=== PATIENT | male | born 1995 ===

== ENCOUNTER 2020-06-03 16:29 | Emergency (ER) | payer OTHER, SELFPAY ==
[2020-06-03 16:54] VITALS: BP 129/70; PULSE 81; RESP 18; TEMP 37.2; O2SAT 97
[2020-06-03 17:05] VITALS: BMI 20.9
--- NOTE | 2020-06-03 17:42 | ED.GENADULT ---
HPI - General Adult General Chief complaint: Upper Respiratory Symptoms <Renzo Camarena NP - Last Filed: 06/03/20 20:22> Stated complaint: covid screening <Renzo Camarena NP - Last Filed: 06/03/20 20:22> Time Seen by Provider: 06/03/20 17:38 <Renzo Camarena NP - Last Filed: 06/03/20 20:22> Source: patient <Renzo Camarena NP - Last Filed: 06/03/20 20:22> Mode of arrival: ambulatory <Renzo Camarena NP - Last Filed: 06/03/20 20:22> Limitations: no limitations <Renzo Camarena NP - Last Filed: 06/03/20 20:22> History of Present Illness HPI narrative: Asymptomatic, here with kids who have URI symptoms. Patient himself has no symptoms and requesting COVID test. <Renzo Camarena NP - Last Filed: 06/03/20 20:22> Onset (ago): day(s) <Renzo Camarena NP - Last Filed: 06/03/20 20:22> Associated symptoms: denies other symptoms <Renzo Camarena NP - Last Filed: 06/03/20 20:22> Treatments prior to arrival: none <Renzo Camarena NP - Last Filed: 06/03/20 20:22> Related Data Allergies/adverse reactions: Allergies Allergy/AdvReac Type Severity Reaction Status Date / Time No Known Allergies Allergy Unverified 01/29/20 19:06 [No Known Allergies*] <Renzo Camarena NP - Last Filed: 06/03/20 20:22> Review of Systems Review of Systems: Constitutional: No Weight loss, No Fever, No Chills, No Night Sweats, No Fatigue, No Malaise ENT/Mouth: No Hearing loss, No Ear Pain, No Nasal Congestion, No Sinus Pain, No Hoarseness, No sore throat, No Rhinorrhea, No Swallowing Difficulty Eyes: No Eye Pain, No Swelling, No Redness, No Foreign Body, No Discharge, No Vision Changes Cardiovascular: No Chest Pain, No SOB, No Dyspnea on Exertion, No Orthopnea, No Edema, No Palpitations Respiratory: No Cough, No Sputum, No Wheezing, No Smoke Exposure, No Dyspnea Gastrointestinal: Negative Genitourinary: Negative Musculoskeletal: No joint pain, No Myalgias, No Joint Swelling Skin: No Skin Lesions, No rash Neuro: Negative Psych: Negative Heme/Lymph: Negative Endocrine: Negative <Renzo Camarena NP - Last Filed: 06/03/20 20:22> Yes all other systems are reviewed and are negative <Renzo Camarena NP - Last Filed: 06/03/20 20:22> PMFSH Past Medical History Medical History: Medical History (Updated 06/03/20 @ 18:39 by Renzo Camaerna NP) No pertinent past medical history <Renzo Camarena NP - Last Filed: 06/03/20 20:22> Social History Social History: Social History Advance Directives: No Advance Directives Information Provided: No <Renzo Camarena NP - Last Filed: 06/03/20 20:22> Physical Exam Vital Signs: Vital Signs: Last Vital Signs Temp 99 F 06/03/20 16:54 Pulse 81 06/03/20 16:54 Resp 18 06/03/20 16:54 BP 129/70 06/03/20 16:54 Pulse Ox 97 06/03/20 16:54 Body Mass Index 20.9 Reviewed <Renzo Camarena NP - Last Filed: 06/03/20 20:22> Vital Signs: Last Vital Signs Temp 99 F 06/03/20 16:54 Pulse 81 06/03/20 16:54 Resp 18 06/03/20 16:54 BP 129/70 06/03/20 16:54 Pulse Ox 97 06/03/20 16:54 Body Mass Index 20.9 <Winston Fenton MD - Last Filed: 06/09/20 15:19> Const: General: cooperative and healthy appearing; No acute distress or intoxicated appearing <Renzo Camarena NP - Last Filed: 06/03/20 20:22> Nutritional Appearance: average body habitus <Renzo Camarena NP - Last Filed: 06/03/20 20:22> Orientation/consciousness: patient oriented x3 <Renzo Camarena NP - Last Filed: 06/03/20 20:22> HENMT: Head: Yes normal to inspection <Renzo Camarena NP - Last Filed: 06/03/20 20:22> Ears: hearing grossly normal bilaterally <Renzo Camarena NP - Last Filed: 06/03/20 20:22> Eyes: General: appearance normal, both eyes and all related structures <Renzo Camarena NP - Last Filed: 06/03/20 20:22> Visual Shields: normal visual shields by confrontation <Renzo Camarena NP - Last Filed: 06/03/20 20:22> Chest: Chest palpation & inspection: normal inspection of the chest <Renzo Camarena NP - Last Filed: 06/03/20 20:22> Resp: Effort & Inspection: normal respiratory effort <Renzo Camarena NP - Last Filed: 06/03/20 20:22> Skin: General skin exam: no rashes or lesions noted <Renzo Camarena NP - Last Filed: 06/03/20 20:22> Neuro: General: patient oriented x3 <Renzo Camarena NP - Last Filed: 06/03/20 20:22> Extrem: General: Yes normal to inspection <Renzo Camarena NP - Last Filed: 06/03/20 20:22> Course Course Course Narrative: Requesting. Does not want to wait request call back with results. <Renzo Camarena NP - Last Filed: 06/03/20 20:22> I have reviewed the chart <Winston Fenton MD - Last Filed: 06/09/20 15:19> Reevaluation(s) Reevaluation #1: Called at this time with results negative will go to patient for to print out the results for job. <Renzo Camarena NP - Last Filed: 06/03/20 20:22> Medical Decision Making Lab Data Labs: Lab Results 06/03/20 Range/Units 17:52 Coronavirus (PCR) NEGATIVE (Negative) Influenza Type A (PCR) NEGATIVE (Negative) Influenza Type B (PCR) NEGATIVE (Negative) RSV RNA Qual (PCR) NEGATIVE (Negative) <Renzo Camarena NP - Last Filed: 06/03/20 20:22> Lab Results 06/03/20 Range/Units 17:52 Coronavirus (PCR) NEGATIVE (Negative) Influenza Type A (PCR) NEGATIVE (Negative) Influenza Type B (PCR) NEGATIVE (Negative) RSV RNA Qual (PCR) NEGATIVE (Negative) <Wisnton Fenton MD - Last Filed: 06/09/20 15:19> Discharge Plan Discharge Clinical Impression: COVID-19 ruled out by laboratory testing <Renzo Camarena NP - Last Filed: 06/03/20 20:22> Patient Disposition: Home, Self-Care <Renzo Camarena NP - Last Filed: 06/03/20 20:22> Instructions: Normal Exam (ED) <Renzo Camarena NP - Last Filed: 06/03/20 20:22> Additional Instructions: We will call you with the COVID-19 test results and have home Return if any concerns or worsening symptoms Follow CDC/state guidelines Thank you <Renzo Camarena NP - Last Filed: 06/03/20 20:22> Referrals: Physician,None [Primary Care Provider] - 1 week <Renzo Camarena NP - Last Filed: 06/03/20 20:22> Discharge Date/Time: 06/03/20 18:56 <Renzo Camarena NP - Last Filed: 06/03/20 20:22>
--- NOTE | 2020-06-03 17:57 | PC.NURSE ---
covid swab performed
[2020-06-03 18:49] LABS: Influenza A PCR NEGATIVE (Negative); Influenza B PCR NEGATIVE (Negative); Resp Syncy Virus RNA Qual PCR NEGATIVE (Negative); SARS COV2 PCR INHOUSE NEGATIVE (Negative)
== END 2020-06-03 18:56 | disposition home or self-care (01) ==
PROVIDERS: Nurse Practitioner Primary Care; Emergency Provider Emergency Medicine
DX: R05 Cough (principal); Z20.822 Contact with and (suspected) exposure to COVID-19
CPT/HCPCS: 0241U; 36415; 99283

== ENCOUNTER 2020-10-16 23:41 | Emergency (ER) | payer OTHER, SELFPAY ==
[2020-10-17 01:34] VITALS: BP 147/82; PULSE 56; RESP 16; TEMP 36.7; O2SAT 100; BMI 21.1
== END 2020-10-17 04:15 | disposition left against medical advice (07) ==
PROVIDERS: Emergency Provider Emergency Medicine
DX: M54.6 Pain in thoracic spine (principal)
CPT/HCPCS: 99281; 99282

== ENCOUNTER 2020-10-17 11:56 | Emergency (ER) | payer OTHER, SELFPAY ==
[2020-10-17 12:18] VITALS: BP 134/78; PULSE 53; RESP 16; TEMP 36.6; O2SAT 99; BMI 21.1
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
[2020-10-17] MEDS: Ketorolac Tromethamine 30 MG/ML VIAL IM (13:27)
== END 2020-10-17 13:30 | disposition home or self-care (01) ==
PROVIDERS: Emergency Provider Emergency Medicine Emergency Medical Services
DX: M54.6 Pain in thoracic spine (principal)
CPT/HCPCS: 96372; 99283; 99284; J1885

== ENCOUNTER 2020-11-20 21:41 | Emergency (ER) | payer OTHER, SELFPAY ==
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
--- NOTE | ~2020-11-20 | US_ITS ---
EXAMINATION: US VENOUS ULTRASOUND WITH DOPPLER LOWER EXTREMITY, RIGHT CLINICAL INFORMATION: Right medial calf pain for one day. COMPARISON: None TECHNIQUE: Ultrasound of the deep veins is performed from the hip to the calf with compression sonography and color and pulse Doppler assessment. Spectral analysis with color-flow imaging is performed. FINDINGS: There is normal venous compression and respiratory variation and augmented flow. The visualized common femoral vein, superficial femoral vein, profunda femoral vein, popliteal vein, and the trifurcation region shows no evidence of deep venous thrombosis. There is no significant popliteal fossa cyst. There are morphologically normal-appearing lymph nodes in the right groin with fatty king. If the patient's symptoms persist, followup ultrasound in 5 days 7 days might be of value to exclude proximal propagation from a non-visualized calf vein. US/US venous duplex LE RT IMPRESSION: No DVT demonstrated in the right lower extremity.
--- NOTE | ~2020-11-20 | XR_ITS ---
EXAMINATION: XR HAND, LEFT CLINICAL INFORMATION: Pain and swelling COMPARISON: None TECHNIQUE: PA, lateral, and oblique views of the left hand. FINDINGS: There is no fracture or dislocation. Alignment is anatomic. Joint spaces are maintained. The soft tissues are unremarkable. XR/XR hand LT min 3V IMPRESSION: Normal left hand.
[2020-11-20 21:45] VITALS: BP 128/88; PULSE 62; RESP 16; TEMP 36.2; O2SAT 99; BMI 21.1
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
== END 2020-11-21 00:38 | disposition home or self-care (01) ==
PROVIDERS: Emergency Provider Internal Medicine
DX: M79.642 Pain in left hand (principal); M79.661 Pain in right lower leg
CPT/HCPCS: 73130; 73590; 93971; 99284

== ENCOUNTER → 2020-11-26 13:43 | Outpatient (BNVA) | payer OTHER, SELFPAY | PROVIDERS: Visit Provider Physician Assistant | DX: M25.532 Pain in left wrist (principal) | CPT/HCPCS: 99202 ==

== ENCOUNTER 2020-12-10 09:02 | Outpatient (REF) | payer OTHER, SELFPAY ==
--- NOTE | ~2020-12-10 | MR_ITS ---
EXAMINATION: MRI OF THE LEFT WRIST WITHOUT CONTRAST CLINICAL INFORMATION: Pain in left wrist COMPARISON: X-ray of the left hand November 2020 TECHNIQUE: MRI left wrist was performed without contrast on a high-field MRI scanner. FINDINGS: Subcutaneous soft tissues: Normal. Muscles and tendons: Normal. Triangular fibrocartilage complex: Normal. Intraosseous ligaments: Normal. Bone and articular cartilage: Normal. MR/MR wrist LT wo con IMPRESSION: Normal MRI of the left wrist.
== END 2020-12-10 09:03 | disposition home or self-care (01) ==
LOC: HO.MRI 09:02
PROVIDERS: Visit Provider Physician Assistant
DX: M25.532 Pain in left wrist (principal)
CPT/HCPCS: 73221

== ENCOUNTER 2021-05-22 00:27 | Emergency (ER) | payer OTHER, SELFPAY ==
[2021-05-22 00:30] VITALS: BP 154/89; PULSE 70; RESP 16; TEMP 36.7; O2SAT 100; BMI 46.5
[2021-05-22 01:52] VITALS: BP 143/101; PULSE 75; RESP 18; TEMP 36.9; O2SAT 100
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
[2021-05-22 03:03] LABS: Basophils Percent Auto 0.5 % (0-2); Eosinophils Absolute Auto 0.2 X10*3/uL (0.0-0.4); Eosinophils Percent Auto 2.9 % (0-4); Hematocrit 43.3 % (42.0-52.0); Hemoglobin 14.4 g/dl (14.0-18.0); Imm Gran Abs Auto 0.01 X10*3/uL (0.00-0.03); Imm Gran Pct Auto 0.1 % (0.0-0.4); Lymphocytes Absolute Auto 2.6 X10*3/uL (1.2-4.9); Lymphocytes Percent Auto 31.5 % (20-40); MANUAL DIFF FLAG NO; Mean Corpuscular HGB Conc 33.3 g/dl (31.0-36.0); Mean Corpuscular Hemoglobin 29.9 pg (27.0-33.0); Mean Corpuscular Volume 89.8 fL (80.0-98.0); Mean Platelet Volume 10.1 fL (9.4-12.4); Monocytes Absolute Auto 0.8 X10*3/uL (0.1-1.2); Monocytes Percent Auto 9.9 % (2-11); Neutrophils Absolute Auto 4.6 x10*3/uL (2.0-8.3); Neutrophils Percent Auto 55.1 % (45-73); Platelet Count 344 X10*3/uL (160-400); Red Blood Count 4.82 X10*6/uL (4.60-5.80); Red Cell Distribution Width 11.9 % (11.0-16.0); White Blood Count 8.4 X10*3/uL (4.8-10.8)
[2021-05-22 03:28] LABS: Alanine Aminotransferase 14 U/L (0-40); Albumin Level 4.1 g/dL (3.5-5.0); Alkaline Phosphatase 55 U/L (39-117); Anion Gap 11 (12-20); Aspartate Amino Transferase 15 U/L (5-37); Bilirubin Total < 0.2 mg/dL (0.0-1.0); Blood Urea Nitrogen 13 mg/dL (9-16); Carbon Dioxide 27 mmol/L (22-29); Chloride 106 mmol/L (96-108); Creatinine Clr Calc Pharmacy 206.6; Estimated Glomerular Filt Rate > 60; Glucose Random 94 mg/dL (60-115); Potassium 4.3 mmol/L (3.3-5.1); Sodium 140 mmol/L (135-145); Total Protein 7.7 g/dL (6.5-8.0)
[2021-05-22] MEDS: Lidocaine 4 % Patch ADH..PATCH 1 PATCH TRANSDERMA (04:08)
[2021-05-22] MEDS: Acetaminophen 325 MG TABLET 975 MG PO (04:10)
[2021-05-22] MEDS: Ketorolac Tromethamine 30 MG/ML VIAL 15 MG IM (04:10)
== END 2021-05-22 04:18 | disposition home or self-care (01) ==
PROVIDERS: Emergency Provider Student in an Organized Health Care Education/Training Program; PCP Internal Medicine
DX: G25.9 Extrapyramidal and movement disorder, unspecified (principal); M54.9 Dorsalgia, unspecified
CPT/HCPCS: 36415; 80053; 85025; 96372; 99284; J1885

== ENCOUNTER 2021-05-31 06:34 | Emergency (ER) | payer OTHER, SELFPAY ==
--- NOTE | ~2021-05-31 | CT_ITS ---
EXAMINATION: CT ABDOMEN AND PELVIS WITHOUT CONTRAST CLINICAL INFORMATION: Right-sided flank pain COMPARISON: None TECHNIQUE: Multidetector volumetric imaging was performed from the superior aspect of the liver through the pubic symphysis. Sagittal and coronal reformatted images were obtained on the technologist's workstation. This CT examination was performed using dose optimization techniques as appropriate, variously including the following: *Automated exposure control *Adjustment of mA and/or kV according to patient size (this includes techniques or standardized protocols for targeted exams where dose is matched to indication/reason for exam; i.e. extremities or head) *Use of iterative reconstruction technique DLP: 395 mGy-cm FINDINGS: LUNG BASES: The visualized lung bases are unremarkable. LIVER, GALLBLADDER, AND BILIARY TREE: The liver is normal in size, shape, and attenuation. No focal hepatic lesion or biliary ductal dilatation is present. The gallbladder is unremarkable with no evidence of radiopaque gallstones, gallbladder wall thickening, or obvious pericholecystic inflammatory changes. PANCREAS: Unremarkable. SPLEEN: Unremarkable. ADRENAL GLANDS: Unremarkable. KIDNEYS AND URETERS: The kidneys are normal in size, shape, and attenuation. No hydronephrosis, hydroureter, or calculi seen. No perinephric stranding. BLADDER: There is moderate stool seen throughout the colon GASTROINTESTINAL TRACT: There is moderate stool seen throughout the colon without distention. Appendix is in the right pelvis and is normal caliber. The small bowel loops are normal caliber. The stomach is nondistended and appears unremarkable. ABDOMINAL WALL: No significant hernia is appreciated. LYMPH NODES: Normal. VASCULAR: Unremarkable. PELVIC VISCERA: Unremarkable. OSSEOUS STRUCTURES: There is mild levoscoliosis of upper lumbar spine, likely positional. Otherwise unremarkable visualized osseous structures. CT/CT abdomen pelvis wo con IMPRESSION: No acute intra-abdominal process seen. Moderate constipation. Normal appendix. No radiopaque urolith or hydroureteronephrosis. Fleischner guidelines were followed.
[2021-05-31 07:12] VITALS: BP 122/82; PULSE 73; RESP 18; TEMP 36.3; O2SAT 100; BMI 21.1
[2021-05-31] MEDS: Ondansetron ODT 4 MG TAB.RAPDIS TRANSLINGU (07:17)
--- NOTE | 2021-05-31 09:17 | PC.NURSE ---
pt left ed, went home and called an ambulance to come back and get in faster
== END 2021-05-31 09:15 | disposition left against medical advice (07) ==
PROVIDERS: Emergency Provider Emergency Medicine
DX: K59.00 Constipation, unspecified (principal); R10.9 Unspecified abdominal pain
CPT/HCPCS: 74176; 99282; 99284

== ENCOUNTER 2021-05-31 09:03 | Emergency (ER) | payer OTHER, SELFPAY ==
[2021-05-31 09:10] VITALS: BP 129/75; PULSE 60; O2SAT 100
== END 2021-05-31 11:32 | disposition left against medical advice (07) ==
PROVIDERS: Emergency Provider Emergency Medicine
DX: R10.9 Unspecified abdominal pain (principal)

== ENCOUNTER 2021-09-11 22:20 | Emergency (ER) | payer OTHER, SELFPAY ==
--- NOTE | ~2021-09-11 | XR_ITS ---
EXAMINATION: XR foot LT min 3V, XR ankle LT min 3V CLINICAL INFORMATION: Reason for Exam NAZIA FELL ON FOOT COMPARISON: None. TECHNIQUE: 3 view series left foot; 2 view series left ankle FINDINGS: Left foot: A mild hallux valgus deformity is noted. No Lisfranc malalignment. No fractures visualized. No embedded radiopaque foreign bodies noted. Left ankle: Intact talar dome. No fractures noted. No arthropathic changes visualized. No joint effusion identified. XR/XR foot LT min 3V IMPRESSION: No acute abnormalities of the left foot and left ankle.
--- NOTE | ~2021-09-11 | XR_ITS ---
EXAMINATION: XR foot LT min 3V, XR ankle LT min 3V CLINICAL INFORMATION: Reason for Exam NAZIA FELL ON FOOT COMPARISON: None. TECHNIQUE: 3 view series left foot; 2 view series left ankle FINDINGS: Left foot: A mild hallux valgus deformity is noted. No Lisfranc malalignment. No fractures visualized. No embedded radiopaque foreign bodies noted. Left ankle: Intact talar dome. No fractures noted. No arthropathic changes visualized. No joint effusion identified. XR/XR ankle LT min 3V IMPRESSION: No acute abnormalities of the left foot and left ankle.
[2021-09-11 22:50] VITALS: BP 148/69; PULSE 69; RESP 16; TEMP 37; O2SAT 100; BMI 27.4
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
[2021-09-12] MEDS: Ketorolac Tromethamine 15 MG/ML VIAL 30 MG IM (00:38)
== END 2021-09-12 01:36 | disposition home or self-care (01) ==
PROVIDERS: Emergency Provider Emergency Medicine
DX: S92.352A Displaced fracture of fifth metatarsal bone, left foot, initial encounter for closed fracture (principal); M25.572 Pain in left ankle and joints of left foot; W20.8XXA Other cause of strike by thrown, projected or falling object, initial encounter; Y93.9 Activity, unspecified; Y92.009 Unspecified place in unspecified non-institutional (private) residence as the place of occurrence of the external cause; Y99.9 Unspecified external cause status
CPT/HCPCS: 73610; 73630; 96372; 99283; 99284; J1885

== ENCOUNTER → 2021-09-28 10:08 | Outpatient (BNVA) | payer OTHER, SELFPAY | PROVIDERS: Visit Provider Physician Assistant | DX: S90.32XA Contusion of left foot, initial encounter (principal) | CPT/HCPCS: 99212 ==

== ENCOUNTER 2021-12-24 23:16 | Emergency (ER) | payer OTHER, SELFPAY ==
[2021-12-24 23:19] VITALS: BP 133/74; PULSE 61; RESP 16; TEMP 36.6; O2SAT 100; BMI 22.4
--- NOTE | 2021-12-25 00:06 | ED.GENADULT ---
HPI - General Adult General Chief complaint: Back Pain/Injury Stated complaint: back pain Time Seen by Provider: 12/25/21 00:06 Source: patient Mode of arrival: ambulatory Limitations: no limitations History of Present Illness HPI narrative: Patient is a 26 year old male presenting to the emergency department today with back pain. Patient states that 6 days ago, he was ratcheting some straps down at work and is now having back pain. Patient denies any dizziness, lightheadedness, abdominal pain, nausea, vomiting, fever, chills, blurry vision, double vision, loss of vision, chest pain, difficulty breathing, shortness of breath, night sweats, pain with urination, increased urinary frequency, increased urinary urgency, blood in his urine or stool, syncope or a near syncopal episode, bowel incontinence, bladder incontinence, bowel retention, bladder retention, or any other complaints at this time. Onset (ago): day(s) (6) Location: back Radiation: non-radiation Severity: mild Severity scale (1-10): 2 Quality: dull Pain Consistency: constant Relieving factors: none Exacerbating factors: none Associated symptoms: denies other symptoms Treatments prior to arrival: none Related Data Previous Rx's Medication Instructions Recorded oxycodone-acetaminophen 5 mg-325 1 tab PO Q6H PRN pain #10 tabs 10/17/20 mg tablet (Percocet) acetaminophen 500 mg tablet 500 mg PO Q6H PRN pain or fever 11/21/20 (Tylenol Extra Strength) #20 tabs lidocaine 5 % topical patch 1 patch topical DAILY PRN pain #30 11/21/20 (Lidoderm) ea naproxen 500 mg tablet 500 mg PO BID PRN pain 10 days #20 11/21/20 tabs oxycodone 5 mg capsule 5 mg PO Q8H PRN pain #6 caps 09/12/21 cyclobenzaprine 5 mg tablet 5 mg PO TID PRN back pain 7 days 12/25/21 #21 tabs Allergies Allergy/AdvReac Type Severity Reaction Status Date / Time No Known Allergies Allergy Verified 09/11/21 22:54 [No Known Allergies*] Review of Systems Constitutional: Constitutional: Reports no additional constitutional complaints, Denies chills, Denies fever(s) and Denies night sweats Eyes: Eyes: Reports no additional eye complaints, Denies blurry vision, Denies change in vision, Denies diplopia, Denies eye discharge, Denies loss of vision and Denies eye pain ENT: Denies dizziness Cardiovascular: Cardiovascular: Reports no additional cardiovascular complaints, Denies chest pain, Denies lightheadedness, Denies Loss of Consciousness and Denies dyspnea Respiratory: Respiratory: Reports no additional respiratory complaints and Denies dyspnea Gastrointestinal: Gastrointestinal: Reports no additional gastrointestinal complaints, Denies abdominal pain, Denies melena, Denies hematochezia, Denies change in bowel habits and Denies change in stool character Genitourinary: Genitourinary: Reports no additional male genitourinary complaints, Denies hematuria, Denies oliguria, Denies difficulty urinating, Denies dysuria, Denies urinary frequency, Denies urinary hesitancy, Denies urinary incontinence and Denies urinary urgency Musculoskeletal: Musculoskeletal: Reports no additional musculoskeletal complaints, Reports back pain, Denies numbness and Denies tingling Neurologic: Denies dizziness, Denies loss of vision, Denies numbness and Denies tingling Psychiatric: Psychiatric: Reports no additional psychiatric complaints Endocrine: Endocrine: Reports no additional endocrine complaints Hematologic/Lymphatic: Hematologic/Lymphatic: Reports no additional hematologic/lymphatic complaints Allergic/Immunologic: Allergic/Immunologic: Reports no additional allergic/immunologic complaints [facility] Past Medical History Attestation statement: The following information was validated with the patient. Source: old records reviewed Medical History Back pain due to injury No pertinent past medical history Social History Social History Advance Directives: No Advance Directives Information Provided: Yes Current occupational status: employed Current occupation: [employer] Physical Exam ED Vital Signs: Vital Signs - 24 hr 12/24/21 23:19 Temperature 98 F Pulse Rate 61 Respiratory Rate 16 Blood Pressure 133/74 Pulse Oximetry 100 Oxygen Delivery Method Room Air BMI result Body Mass Index 22.4 Resp Auscultation: clear to auscultation bilaterally Cardio Rate: regular rate Rhythm: regular rhythm General: Yes no CVA tenderness Back/Spine/Pelvis Back: no CVA tenderness Cervical Spine: normal cervical lordosis and cervical ROM normal Thoracic/Lumbar Spine: thoracic and lumbar spine normal to inspection and thoraco-lumbar ROM normal Pelvis: no pain with anterior-posterior compression Medical Decision Making MDM Narrative Medical decision making narrative: Patient is a 26 year old male presenting to the emergency department today with back pain. Patient's physical exam was unremarkable. I explained my physical exam findings to the patient. I answered all questions asked by the patient. Patient received IM Toradol and PO Flexeril which he stated helped his symptoms significantly. I stressed the importance of the patient taking his medication as prescribed. I stressed the importance of the patient following up with his primary care provider. I stressed the importance of the patient returning to the emergency department immediately if his symptoms were to worsen or if he were to develop any dizziness, shortness of breath, difficulty breathing, chest pain, blurry vision, loss of vision, nausea, vomiting, abdominal pain, fever, chills, back pain, or any other complaints. Patient verbalized agreement and understanding with this treatment plan and discharge. Differential Diagnosis Differential Diagnosis: back pain Medical Records Medical records reviewed: Yes I reviewed the patient's medical records. Discharge Plan Discharge Clinical Impression: Back pain Patient Disposition: Home, Self-Care Instructions: Back Pain (ED) Additional Instructions: Follow up with your primary care provider. Return to the emergency department immediately if your symptoms worsen or if you develop any dizziness, shortness of breath, difficulty breathing, chest pain, blurry vision, loss of vision, nausea, vomiting, abdominal pain, fever, chills, back pain, or any other complaints. Prescriptions: New cyclobenzaprine 5 mg tablet 5 mg PO TID PRN (Reason: back pain) 7 Days Qty: 21 0RF Discontinued cyclobenzaprine 5 mg tablet 5 mg PO TID PRN (Reason: muscle spasm) Qty: 10 0RF ibuprofen 600 mg tablet 600 mg PO Q6H PRN (Reason: pain) Qty: 20 0RF cyclobenzaprine 5 mg tablet 5 mg PO Q8H PRN (Reason: pain (scale score 7-10)) 5 Days Qty: 14 0RF No Action oxycodone-acetaminophen [Percocet] 5-325 mg tablet 1 tab PO Q6H PRN (Reason: pain) Qty: 10 0RF Rx Instructions: Narcotic, no driving for 6 hours after taking this medication acetaminophen [Tylenol Extra Strength] 500 mg tablet 500 mg PO Q6H PRN (Reason: pain or fever) Qty: 20 0RF lidocaine [Lidoderm] 5 % adhesive patch,medicated 1 patch topical DAILY MDD remove after 12 hours PRN (Reason: pain) Qty: 30 0RF Rx Instructions: leave on most painful area for up to 12 hrs naproxen 500 mg tablet 500 mg PO BID PRN (Reason: pain) 10 Days Qty: 20 0RF oxycodone 5 mg capsule 5 mg PO Q8H PRN (Reason: pain) Qty: 6 0RF Rx Instructions: Patient can partially fill prescription upon request Referrals: Shade Ann MD [Primary Care Provider] - Stand Alone Forms: Work/School Release Print Language: Urdu
[2021-12-25] MEDS: Ketorolac Tromethamine 15 MG/ML VIAL IM (01:02)
[2021-12-25] MEDS: Cyclobenzaprine HCl 5 MG TABLET PO (01:03)
== END 2021-12-25 01:15 | disposition home or self-care (01) ==
PROVIDERS: Emergency Provider Emergency Medicine; PCP Internal Medicine
DX: M54.50 Low back pain, unspecified (principal); Z79.899 Other long term (current) drug therapy
CPT/HCPCS: 96372; 99283; 99284; J1885

== ENCOUNTER → 2022-05-09 14:24 | Outpatient (BNVA) | payer OTHER, SELFPAY | PROVIDERS: PCP Internal Medicine; Visit Provider Urology | DX: Z30.09 Encounter for other general counseling and advice on contraception (principal); F41.8 Other specified anxiety disorders | CPT/HCPCS: 99202 ==

== ENCOUNTER 2022-12-31 18:07 | Emergency (ER) | payer OTHER, SELFPAY ==
[2022-12-31 19:12] VITALS: BP 125/71; PULSE 57; RESP 18; TEMP 36.5; O2SAT 100; BMI 24.4
[2022-12-31 22:39] VITALS: BP 123/81; PULSE 59; RESP 15; TEMP 36.7; O2SAT 100
--- NOTE | 2022-12-31 23:37 | PC.NURSE ---
Assumed care of pt.
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
== END 2023-01-01 01:04 | disposition home or self-care (01) ==
PROVIDERS: Emergency Provider Emergency Medicine
DX: M54.50 Low back pain, unspecified (principal); M79.604 Pain in right leg; G25.81 Restless legs syndrome; R51.9 Headache, unspecified; Z79.899 Other long term (current) drug therapy
CPT/HCPCS: 99283; 99284

== ENCOUNTER 2023-03-11 13:28 | Emergency (ER) | payer SELFPAY ==
[2023-03-11 13:38] VITALS: BP 139/62; PULSE 58; RESP 18; TEMP 36.6; O2SAT 98; BMI 23.7
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
[2023-03-11] MEDS: Fluorescein Sodium STRIP 1 STRIP EYE-BOTH (16:30)
[2023-03-11] MEDS: Tetracaine HCl/PF 0.5% Oph Sol 4 ML DROPS 3 DROP EYE-BOTH (16:30)
== END 2023-03-11 17:02 | disposition home or self-care (01) ==
PROVIDERS: Emergency Provider Internal Medicine
DX: S05.02XA Injury of conjunctiva and corneal abrasion without foreign body, left eye, initial encounter (principal); X58.XXXA Exposure to other specified factors, initial encounter; Y93.9 Activity, unspecified; Y92.9 Unspecified place or not applicable; Y99.9 Unspecified external cause status; Z79.899 Other long term (current) drug therapy
CPT/HCPCS: 96372; 99282; 99284

== ENCOUNTER 2023-08-10 18:46 | Emergency (ER) | payer OTHER, SELFPAY ==
--- NOTE | ~2023-08-10 | XR_ITS ---
EXAMINATION: XR LUMBOSACRAL SPINE CLINICAL INFORMATION: Back pain COMPARISON: None available. TECHNIQUE: Three views of the lumbosacral spine. FINDINGS: The vertebral bodies and posterior elements are unremarkable aside from some mild straightening. The disc spaces are preserved and the vertebral alignment is normal. The paraspinal soft tissues are normal. XR/XR lumbar spine 2-3V IMPRESSION: Mild straightening of the lumbar spine. No acute finding.
[2023-08-10 19:37] VITALS: BP 152/83; PULSE 63; RESP 18; TEMP 36.7; O2SAT 99; BMI 25.2
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
[2023-08-10 20:32] LABS: MANUAL DIFF FLAG NO
[2023-08-10 20:34] LABS: Basophils Percent Auto 0.3 % (0-2); Eosinophils Absolute Auto 0.2 X10*3/uL (0.0-0.4); Eosinophils Percent Auto 1.9 % (0-4); Hematocrit 41.2 % (42.0-52.0); Imm Gran Abs Auto 0.02 X10*3/uL (0.00-0.03); Imm Gran Pct Auto 0.3 % (0.0-0.4); Lymphocytes Absolute Auto 2.6 X10*3/uL (1.2-4.9); Mean Corpuscular Hemoglobin 30.4 pg (27.0-33.0); Mean Corpuscular Volume 89.6 fL (80.0-98.0); Mean Platelet Volume 10.4 fL (9.4-12.4); Monocytes Absolute Auto 0.6 X10*3/uL (0.1-1.2); Neutrophils Absolute Auto 4.5 x10*3/uL (2.0-8.3); Neutrophils Percent Auto 56.5 % (45-73); Platelet Count 251 X10*3/uL (160-400); Red Cell Distribution Width 12.2 % (11.0-16.0); White Blood Count 7.9 X10*3/uL (4.8-10.8)
[2023-08-10 20:48] LABS: Alanine Aminotransferase 12 U/L (0-40); Alkaline Phosphatase 72 U/L (39-117); Anion Gap 10 (12-20); Aspartate Amino Transferase 14 U/L (5-37); Bilirubin Total 0.2 mg/dL (0.0-1.0); Blood Urea Nitrogen 13 mg/dL (9-16); Calcium 9.3 mg/dL (8.4-10.2); Carbon Dioxide 27 mmol/L (22-29); Chloride 107 mmol/L (96-108); Creatinine Clr Calc Pharmacy 128.3; Estimated Glomerular Filt Rate > 60; Glucose Random 97 mg/dL (60-115); Potassium 3.8 mmol/L (3.3-5.1); Sodium 140 mmol/L (135-145); Total Protein 7.6 g/dL (6.5-8.0)
[2023-08-10 21:39] LABS: Appearance Urine Clear; Color Urine Yellow; Glucose Urine UA Negative (Negative); Leukocyte Esterase Urine Negative (Negative); Nitrite Urine Negative (Negative); PH 5.5 (5.0-9.0); Specific Gravity - Urine >= 1.030 (1.005-1.025); Urine Blood Negative (Negative); Urine Ketones Negative (Negative); Urine Protein Trace mg/dL (Neg-Trace)
[2023-08-11 00:54] VITALS: BP 125/66; PULSE 67; RESP 16; TEMP 36.7; O2SAT 98
== END 2023-08-11 00:56 | disposition home or self-care (01) ==
PROVIDERS: Nurse Practitioner Family; Emergency Provider Internal Medicine
DX: M54.50 Low back pain, unspecified (principal); R30.0 Dysuria
CPT/HCPCS: 36415; 72100; 80053; 81003; 85025; 99283; 99284

== ENCOUNTER 2024-02-10 22:09 | Emergency (ER) | payer OTHER, SELFPAY ==
--- NOTE | ~2024-02-10 | XR_ITS ---
EXAMINATION: XR KNEE, RIGHT CLINICAL INFORMATION: Knee pain. COMPARISON: None available. TECHNIQUE: Four views of the right knee. FINDINGS: No fracture or joint effusion. Alignment is anatomic. Joint spaces are maintained. No abnormal soft tissue calcification. XR/XR knee RT 4V IMPRESSION: Normal right knee. Electronically signed by: Sharad Cunningham MD 02/11/2024 12:34 AM EDT
[2024-02-10 22:43] VITALS: BP 117/62; PULSE 63; RESP 16; TEMP 36.6; O2SAT 99; BMI 24.9
--- NOTE | 2024-02-11 00:48 | ED_ITS ---
HPI - Extremity Injury (Lower) General Chief Complaint: Extremity Injury, Lower Stated Complaint: knee pain Time Seen by Provider: 02/11/24 00:47 Source: patient Mode of arrival: ambulatory Limitations: no limitations History of Present Illness ED Provider: ROMIE LUNDBERG Narrative: 29 yo male with no sig PMH here with R knee pain for 1 week has a lot of bending and overuse of his R knee while working for [employer]. He has no rash, bites, fevers. He has all the pain on R aspect of the knee. Hurts to walk and bend the knee. Has not seen orthopedics for this before. complaint: other (knee pain) Onset (ago): week(s) (1) Injury: Right: knee Type of Injury: other (overuse) Place: work Severity: moderate Relieving factors: immobilization Exacerbating factors: movement and palpation Context: other Associated symptoms: swelling Other symptoms: none Treatments prior to arrival: cold therapy Related Data Previous Rx's ?Medication ?Instructions ?Recorded oxycodone-acetaminophen 5 mg-325 1 tab PO Q6H PRN pain #10 tabs 10/17/20 mg tablet (Percocet) acetaminophen 500 mg tablet 500 mg PO Q6H PRN pain or fever 11/21/20 (Tylenol Extra Strength) #20 tabs lidocaine 5 % topical patch 1 patch topical DAILY PRN pain #30 11/21/20 (Lidoderm) ea naproxen 500 mg tablet 500 mg PO BID PRN pain 10 days #20 11/21/20 tabs oxycodone 5 mg capsule 5 mg PO Q8H PRN pain #6 caps 09/12/21 cyclobenzaprine 5 mg tablet 5 mg PO TID PRN back pain 7 days 12/25/21 #21 tabs acetaminophen 300 mg-codeine 30 mg 1 tab PO Q8H 3 days #9 tabs 05/09/22 tablet diazepam 2 mg tablet 2 mg PO BID PRN anxiety 1 day #2 05/09/22 tabs erythromycin 5 mg/gram (0.5 %) eye 0.5 inch ophthalmic (eye) QID 7 03/11/23 ointment days #50 grams naproxen 500 mg tablet 500 mg PO BID PRN pain 7 days #14 03/11/23 tabs cyclobenzaprine 10 mg tablet 10 mg PO TID PRN muscle spasm #15 08/10/23 tabs dexamethasone 4 mg tablet 4 mg PO BID #6 tabs 08/10/23 cyclobenzaprine 10 mg tablet 10 mg PO TID PRN muscle spasm #20 02/11/24 tabs ibuprofen 600 mg tablet 600 mg PO Q6H PRN pain #30 tabs 02/11/24 Allergies Allergy/AdvReac Type Severity Reaction Status Date / Time No Known Allergies Allergy Verified 02/10/24 22:46 [No Known Allergies*] Review of Systems Review of Systems: Constitutional : No Fever, No Chills ENT/Mouth : No Ear Pain, No Hoarseness, No sore throat Eyes: No Eye Pain, No Swelling, No Redness, No Foreign Body Cardiovascular : No Chest Pain, No SOB Respiratory : No Cough, No Dyspnea Gastrointestinal : No Nausea, No Vomiting, No Diarrhea, No abdominal Pain Genitourinary : No Dysuria, No Hematuria Musculoskeletal : positive joint pain, No Myalgias, pos Joint Swelling Skin : No Skin lacerations, No rash Neuro : No Weakness, No Numbness All other systems reviewed and are negative [facility] Past Medical History Attestation statement: The following information was validated with the patient. Source: old records reviewed Medical History Back pain due to injury No pertinent past medical history Social History Social History Smoked in Last 30 Days: No Current occupational status: employed Current occupation: rt handed/[employer] Physical Exam Vital Signs: Vital Signs: Last Vital Signs Temp 97.9 F 02/10/24 22:43 Pulse 63 02/10/24 22:43 Resp 16 02/10/24 22:43 BP 117/62 02/10/24 22:43 Pulse Ox 99 02/10/24 22:43 O2 Del Method Room Air 02/10/24 22:43 BMI result Body Mass Index 24.9 Appearance: Alert. Oriented X3. No acute distress. Eyes: Pupils equal, round and reactive to light. ENT: Pharynx normal. Neck: Normal inspection. Neck supple. CVS: Normal heart rate and rhythm. Pulses normal. Respiratory: No respiratory distress. Breath sounds normal. Abdomen: Soft and nontender. Skin: Skin warm and dry. Normal skin color. Normal skin turgor. Extremities:R knee ttp along medial joint line no rash, no redness, no warmth, no effusion, distal NV intact, has range knee has ttp along joint line Neuro: Oriented X 3. No motor deficit. No sensory deficit. Medical Decision Making Medical Decision Making [facility] Narrative: 29 yo male no sig PMH here with R knee pain after overuse at work at this time will need xray of knee and he was handed an kerline wrap will start on NSAIDs, work note and refer to orthopedics if not better. Suspect possible tendonitis vs overuse vs internal derangement Differential Diagnosis Differential Diagnoses: The differential diagnosis associated with the pres entation includes strain, sprain, internal derangement, arthritis, tendonitis Independent Interpretation I performed an independent interpretation of an: Plain X-Ray (normal) Radiology Impression Discussion of test interpretation with radiology: I have reviewed the radiologist's reading. External Record Review External record reviewed: Office record Prescription Management I considered prescription management with: Pain Medication and Other Discharge Plan Discharge Clinical Impression: Arthralgia Qualifiers: Joint pain location: knee Laterality: right Qualified Code(s): M25.561 - Pain in right knee Patient Disposition: Home, Self-Care Instructions: Arthralgia (ED) Additional Instructions: please follow up with orthopedics no acute findings on xray take medications as prescribed EXAMINATION: XR KNEE, RIGHT CLINICAL INFORMATION: Knee pain. COMPARISON: None available. TECHNIQUE: Four views of the right knee. FINDINGS: No fracture or joint effusion. Alignment is anatomic. Joint spaces are maintained. No abnormal soft tissue calcification. XR/XR knee RT 4V IMPRESSION: Normal right knee. Prescriptions: New cyclobenzaprine 10 mg tablet 10 mg PO TID PRN (Reason: muscle spasm) Qty: 20 0RF ibuprofen 600 mg tablet 600 mg PO Q6H PRN (Reason: pain) Qty: 30 0RF No Action oxycodone-acetaminophen [Percocet] 5-325 mg tablet 1 tab PO Q6H PRN (Reason: pain) Qty: 10 0RF Rx Instructions: Narcotic, no driving for 6 hours after taking this medication acetaminophen [Tylenol Extra Strength] 500 mg tablet 500 mg PO Q6H PRN (Reason: pain or fever) Qty: 20 0RF lidocaine [Lidoderm] 5 % adhesive patch,medicated 1 patch topical DAILY MDD remove after 12 hours PRN (Reason: pain) Qty: 30 0RF Rx Instructions: leave on most painful area for up to 12 hrs naproxen 500 mg tablet 500 mg PO BID PRN (Reason: pain) 10 Days Qty: 20 0RF oxycodone 5 mg capsule 5 mg PO Q8H PRN (Reason: pain) Qty: 6 0RF Rx Instructions: Patient can partially fill prescription upon request cyclobenzaprine 5 mg tablet 5 mg PO TID PRN (Reason: back pain) 7 Days Qty: 21 0RF dexamethasone 4 mg tablet 4 mg PO BID Qty: 6 0RF cyclobenzaprine 10 mg tablet 10 mg PO TID PRN (Reason: muscle spasm) Qty: 15 0RF erythromycin 5 mg/gram (0.5 %) ointment 0.5 inch ophthalmic (eye) QID 7 Days Qty: 50 0RF naproxen 500 mg tablet 500 mg PO BID PRN (Reason: pain) 7 Days Qty: 14 0RF acetaminophen-codeine 300-30 mg tablet 1 tab PO Q8H 3 Days Qty: 9 0RF diazepam 2 mg tablet 2 mg PO BID PRN (Reason: anxiety) 1 Days Qty: 2 0RF Rx Instructions: Take medication after arrival at office Referrals: [facility] [place] [facility] [Provider Group] Stand Alone Forms: Work/School Release Print Language: Taiwanese
[2024-02-11 00:56] VITALS: BP 126/73; PULSE 66; RESP 18; TEMP 36.7; O2SAT 100
== END 2024-02-11 00:58 | disposition home or self-care (01) ==
PROVIDERS: Emergency Provider Emergency Medicine
DX: M25.561 Pain in right knee (principal)
CPT/HCPCS: 73564; 99283; 99284

== ENCOUNTER 2024-03-20 09:25 | Outpatient (REF) | payer OTHER, SELFPAY | END 2024-03-20 09:26 | disposition home or self-care (01) | LOC: HO.HOSX 09:25 | PROVIDERS: Visit Provider Physician Assistant | DX: M25.561 Pain in right knee (principal); M23.91 Unspecified internal derangement of right knee | CPT/HCPCS: 73560; 99212 ==

== ENCOUNTER 2024-03-20 10:59 | Outpatient (AMB) | payer OTHER, SELFPAY ==
--- NOTE | 2024-03-20 11:16 | A.OFFVIS_ITS ---
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 Patient reports his pain came on suddenly and has been present for about 2 months. Denies injury. He has constant pain that is located at the medial aspect of knee. His pain increases with prolong standing, lifting heavy objects and at night with sleeping. No numbness or tingling. HX of RLS. Finds no relief with topical creams, Tylenol or Motrin. No previous tx. 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 He denies any injury and he report his pain started suddenly. He currently states he has constant pain at the medial aspect of his knee that is aggravated with prolonged standing, heavy lifting and sleeping at night. He denies any numbness, tingling, or pain with stairs, walking, twisting and pivoting. He finds no relief with topical creams, Tylenol or Motrin. He has not had any treatment in the past. He has a history of RLS. He works at [employer] [facility] Medical History Back pain due to injury No pertinent past medical history Social History Current occupational status: employed Current occupation: rt handed/[employer] Review of Systems Const All systems reviewed & are unremarkable except as noted in HPI and below Physical Exam Vital Signs: BMI result Body Mass Index 24.8 Extrem Other: Right knee: Skin intact, no erythema or joint effusion. Tenderness along the medial and lateral joint line. Full ROM with crepitus. Positive Homero?s. No ligamentous laxity. NVI. Results Reviewed Results Reviewed: Xrays were obtained in the office today and personally reviewed by me of the right knee show well preserved joint space Assessment & Plan Assessment & Plan (1) Internal derangement of right knee: Code(s): M23.91 - Unspecified internal derangement of right knee Category: Medical Plan Given his clinical exam findings we will order an MRI of the right knee to further evaluate the ligamentous structures. Once the scan is complete, I will see him back to review the results. He was also fit for a Janumet knee brace in the office today. Orders: Orders XR knee RT 1V Today M25.561 - Pain in right knee MR knee RT wo con Today M23.91 - Unspecified internal derangement of right knee Patient Instructions: Scribed for Milka Arredondo PA-C, by Luke Danielson medical officer, on 03/20/2024 at 11:15 AM EST.? I, Milka Arredondo PA-C, have personally reviewed and agree with the information entered by the scribe. Coding Level of Care Code New Pt Level 3 (86065) Complex EM visit Add On G2211 Diagnoses Internal derangement of right knee M23.91
[2024-03-20 11:20] VITALS: BMI 24.8
== END 2024-03-20 12:00 | disposition home or self-care (01) ==
LOC: HO.HOS 10:59
PROVIDERS: Visit Provider Physician Assistant
DX: M23.91 Unspecified internal derangement of right knee (principal)
CPT/HCPCS: 99213; G2211

== ENCOUNTER 2024-04-25 06:50 | Emergency (ER) | payer OTHER, SELFPAY ==
[2024-04-25 06:54] VITALS: BMI 25.8
--- NOTE | 2024-04-25 08:11 | ED_ITS ---
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 Patient states his girlfriend cheated on him and he was very upset. Also reports ?syncopal episode this morning while on porch with fall witnessed by bystander with + head strike. Denies headache, neck or back pain at present. Denies illicit substance use/ETOH. Denies SI/H at present however states he is losing everything. Related Data Home Medications ?Medication ?Instructions ?Recorded ?Confirmed No Known Home Meds 04/25/24 04/25/24 Allergies Allergy/AdvReac Type Severity Reaction Status Date / Time No Known Allergies Allergy Verified 04/25/24 06:54 [No Known Allergies*] Review of Systems 2 Review of Systems: Yes all other systems are reviewed and are negative Constitutional: Constitutional: Reports as per HPI [facility] Past Medical History Attestation statement: The following information was validated with the patient. Source: old records reviewed Medical History Back pain due to injury No pertinent past medical history Social History Social History Advance Directives: No Advance Directives Information Provided: Yes Current occupational status: employed Current occupation: rt handed[employer] Physical Exam 2 Vital Signs: Vital Signs: Last Vital Signs Temp 98.6 F 04/25/24 08:29 Pulse 77 04/25/24 08:29 Resp 20 04/25/24 08:29 BP 129/80 04/25/24 08:29 Pulse Ox 98 04/25/24 08:29 O2 Del Method Room Air 04/25/24 08:29 BMI result Body Mass Index 25.8 Const: General: cooperative, healthy appearing and no acute distress O rientation/consciousness: patient oriented x3 Limitations: no limitations HEENT: Other: + superficial abrasion/erythema noted to right temporal region. Nontender. No palpable skull depression Head: Yes normal to inspection, Yes atraumatic, No Nguyen's sign and No raccoon eyes Ears: hearing grossly normal bilaterally General nose exam: N ormal external nose present Face and sinus: Yes normal facial exam Mouth: Normal oral and palatal mucosa present and no drooling Throat: Yes posterior oropharynx normal Eyes: General: appearance normal, both eyes and all related structures P upils: Equal, round and reactive pupils present EOM: EOMs intact bilaterally Neck: Neck: Yes normal visual inspection, Yes no meningeal signs and No anterior neck swelling Resp: Effort & Inspection: normal respiratory effort and no respiratory distress Cardio: Rate: regular rate Heart sounds: S1 normal heart sound present and S2 normal heart sound present GI: Inspection: Yes normal to inspection Palpation (GI): Soft to palpation, nontender, no guarding and not rigid Back/Spine/Pelvis: Other: No midline cervical/thoracic/lumbar spinous tenderness/step-off or deformity Skin: Rashes: no rashes Wounds: no wounds Neuro: General: patient oriented x3, gait normal, tone normal, moves all extremities, no meningeal signs, no focal motor deficits and CN's II-XI intact bilaterally Cranial nerves: Yes CN's II-XII intact bilaterally, Yes Equal, round and reactive pupils present and Yes Bilaterally intact EOM present C ognition (Neuro): normal cognition Gait exam (Neuro): Normal gait present Motor exam (neuro): 5/5 motor strength present throughout Extrem: General: Yes normal to inspection Psych: Thought content: suicidality and no homicidality Course Course Course Narrative: [id number]--labs reassuring. Physician observation initiated as patient needs more time to be evaluated by CARE team -[id number]--patient was evaluated by CARE team and cleared for discharge. They will follow-up with him Results discussed with patient including worrisome signs and symptoms and strict return precautions, and when to return to the emergency department. They verbalized understanding and feel safe for discharge at this time. 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 On exam vital signs stable, NAD, nontoxic appearing, denies SI/HI at present however appears depressed/sad. Concern for a vague suicidal ideations without plan and increasing depression. Plan: Labs, tox screen, CARE team consult Please refer to course for remaining clinical decision making, interpretation of labs/imaging results, and discussions with consultants and/or family members. Differential Diagnosis Differential Diagnoses: The differential diagnosis associated with the presentation includes As above Admission/Observation Consideration of admission/observation: Escalation of care including admission/observation considered Lab Data MDM Lab Attestation statement: I reviewed the patient's lab results. 04/25/24 08:24 04/25/24 08:24 Labs: Lab Results 04/25/24 Range/Units 08:24 WBC 7.4 (4.8-10.8) X10*3/uL RBC 4.87 (4.60-5.80) X10*6/uL Hgb 14.6 (14.0-18.0) g/dl Hct 41.7 L (42.0-52.0) % MCV 85.6 (80.0-98.0) fL MCH 30.0 (27.0-33.0) pg MCHC 35.0 (31.0-36.0) g/dl RDW 12.0 (11.0-16.0) % Plt Count 301 (160-400) X10*3/uL MPV 9.9 (9.4-12.4) fL Immature Gran % (Auto) 0.3 (0.0-0.4) % Neut % (Auto) 72.2 (45-73) % Lymph % (Auto) 17.0 L (20-40) % [place] % (Auto) 9.7 (2-11) % Eos % (Auto) 0.3 (0-4) % Baso % (Auto) 0.5 (0-2) % Lymph # (Auto) 1.3 (1.2-4.9) X10*3/uL [place] # (Auto) 0.7 (0.1-1.2) X10*3/uL Eos # (Auto) 0.0 (0.0-0.4) X10*3/uL Baso # (Auto) 0.0 (0.0-0.2) X10*3/uL Abs Immat Gran (auto) 0.02 (0.00-0.03) X10*3/uL Absolute Neuts (auto) 5.3 (2.0-8.3) x10*3/uL Absolute Nucleated RBC 0.000 (0.0-0.012) X10*3/uL Nucleated RBC % (auto) 0.0 (0.0-0.2) /100WBC Sodium 140 (135-145) mmol/L Potassium 3.3 (3.3-5.1) mmol/L Chloride 106 (96-108) mmol/L Carbon Dioxide 27 (22-29) mmol/L Anion Gap 10 L (12-20) BUN 10 (9-16) mg/dL Creatinine 0.80 (0.5-1.4) mg/dL Estim Creat Clear Calc 148.1 Estimated GFR > 60 Random Glucose 118 H (60-115) mg/dL Calcium 9.5 (8.4-10.2) mg/dL Total Bilirubin 0.6 (0.0-1.0) mg/dL AST 17 (5-37) U/L ALT 14 (0-40) U/L Alkaline Phosphatase 64 (39-117) U/L Total Protein 7.9 (6.5-8.0) g/dL Albumin 4.4 (3.5-5.0) g/dL Salicylates < 5.0 L (15-30) mg/dL Acetaminophen < 3 (<30) mcg/mL Ethyl Alcohol < 10 mg/dL Radiology Impression Discussion of test interpretation with radiology: I have reviewed the radiologist's reading. Independent Historian Clinical information obtained from an independent historian. History obtained from or confirmed by: EMS External Record Review External record reviewed: Inpatient record, Office record, Outpatient record, Prior outpatient labs, Prior outpatient radiology, Primary care record and Outside ED record Tests considered The following testing was considered but not selected: As above Chronic Conditions Patient?s care impacted by: Other Social Determinants Patient?s care significantly limited by Social Determinants of Health including: Inadequate housing, Problems related to primary support group and Other Social Determinant of Health Discharge Plan Discharge Clinical Impression: Suicidal ideation Patient Disposition: Still a Patient Prescriptions: No Action No Known Home Meds Print Language: French
[2024-04-25 08:28] LABS: MANUAL DIFF FLAG NO
[2024-04-25 08:29] VITALS: BP 129/80; PULSE 77; RESP 20; TEMP 37; O2SAT 98
[2024-04-25 08:29] LABS: Basophils Percent Auto 0.5 % (0-2); Eosinophils Percent Auto 0.3 % (0-4); Hematocrit 41.7 % (42.0-52.0); Hemoglobin 14.6 g/dl (14.0-18.0); Imm Gran Abs Auto 0.02 X10*3/uL (0.00-0.03); Imm Gran Pct Auto 0.3 % (0.0-0.4); Lymphocytes Absolute Auto 1.3 X10*3/uL (1.2-4.9); Mean Corpuscular Volume 85.6 fL (80.0-98.0); Mean Platelet Volume 9.9 fL (9.4-12.4); Monocytes Absolute Auto 0.7 X10*3/uL (0.1-1.2); Monocytes Percent Auto 9.7 % (2-11); Neutrophils Absolute Auto 5.3 x10*3/uL (2.0-8.3); Neutrophils Percent Auto 72.2 % (45-73); Platelet Count 301 X10*3/uL (160-400); Red Blood Count 4.87 X10*6/uL (4.60-5.80); White Blood Count 7.4 X10*3/uL (4.8-10.8)
[2024-04-25 08:45] LABS: Acetaminophen LAB < 3 mcg/mL (<30); Salicylate < 5.0 mg/dL (15-30)
[2024-04-25 08:47] LABS: Alanine Aminotransferase 14 U/L (0-40); Albumin Level 4.4 g/dL (3.5-5.0); Alkaline Phosphatase 64 U/L (39-117); Anion Gap 10 (12-20); Aspartate Amino Transferase 17 U/L (5-37); Bilirubin Total 0.6 mg/dL (0.0-1.0); Blood Urea Nitrogen 10 mg/dL (9-16); Calcium 9.5 mg/dL (8.4-10.2); Carbon Dioxide 27 mmol/L (22-29); Chloride 106 mmol/L (96-108); Creatinine Clr Calc Pharmacy 148.1; Estimated Glomerular Filt Rate > 60; Ethanol < 10 mg/dL; Glucose Random 118 mg/dL (60-115); Potassium 3.3 mmol/L (3.3-5.1); Sodium 140 mmol/L (135-145); Total Protein 7.9 g/dL (6.5-8.0)
[2024-04-25 09:58] LABS: Amphetamine Screen Urine Not Detected (Not Detect); Barbiturates, Urine Not Detected (Not Detect); Benzodiazepines Screen Urine Not Detected (Not Detect); Buprenorphine Scr Not Detected (Not Detect); Cannabinoid Screen Urine Not Detected (Not Detect); Cocaine Screen Urine Not Detected (Not Detect); Fentanyl, urine Not Detected (Not Detect); Methadone Screen, Urine Not Detected (Not Detect); Opiate Screen Urine Not Detected (Not Detect); Oxycodone Screen Urine Not Detected (Not Detect); Phencyclidine Screen Urine Not Detected (Not Detect)
[2024-04-25 10:22] VITALS: BP 129/80; PULSE 77; RESP 20; TEMP 37; O2SAT 98
--- NOTE | 2024-04-25 12:14 | MHC.CARE ---
CC OP Referral complete.
== END 2024-04-25 10:22 | disposition home or self-care (01) ==
PROVIDERS: Physician Assistant; Emergency Provider Student in an Organized Health Care Education/Training Program
DX: R45.851 Suicidal ideations (principal); Z59.10 Inadequate housing, unspecified; Z63.9 Problem related to primary support group, unspecified
CPT/HCPCS: 36415; 80053; 80143; 80179; 80307; 85025; 99284